=== PATIENT | female | born 1965 | race Caucasian/White ===

== ENCOUNTER → 2016-05-30 | Outpatient (CLI) | payer BC ==
[~2016-05-30] MED LIST: CEPH500C2 PO; CHOL1000 PO; LEVO100T7 PO; LEVO75TA5 PO; MULTTAB58 PO; NAPR-1169 PO
[2016-05-30 15:11] LABS: THYROID STIMULATING HORMONE 0.097 uIu/ml (0.300-4.500)
== END | disposition home or self-care (01) ==
LOC: C.LAB 13:40
PROVIDERS: ATTEND Internal Medicine Endocrinology, Diabetes & Metabolism
DX: E03.9 Hypothyroidism, unspecified (principal)

== ENCOUNTER 2016-06-27 20:58 | Emergency (ER) | payer BC ==
[~2016-06-27] VITALS: Ht 157.5 cm; Wt 62.6 kg
[~2016-06-27 20:58] MED LIST changes: -CEPH500C2 PO; -CHOL1000 PO; -LEVO75TA5 PO; -NAPR-1169 PO
[2016-06-27 21:05] VITALS: TEMP 36.9; Ht 157.5 cm; Wt 62.6 kg
[2016-06-27 22:18] VITALS: O2SAT 99
[2016-06-27 22:22] LABS: HEMATOCRIT 40.5 % (37-47); MEAN CELL VOLUME 70.9 fL (80-100); MEAN CORPUSCULAR HEMOGLOBIN 23.5 pg (25-34); MEAN CORPUSCULAR HGB CONC 33.1 g/dl (32-36); PLATELET COUNT 286 K/uL (130-400); RED BLOOD COUNT 5.71 M/uL (4.2-5.4); WHITE BLOOD COUNT 5.98 K/uL (4.8-10.8)
[2016-06-27 22:33] LABS: PARTIAL THROMBOPLASTIN RATIO 1.1; PROTHROMBIN TIME (PATIENT) 10.2 SECONDS (9.0-12.0)
--- NOTE | 2016-06-27 22:38 | DIAGNOSTIC IMAGING REPORT ---
CHEST ONE VIEW PORTABLE CLINICAL HISTORY: Atypical chest pain COMPARISON STUDY: No previous studies for comparison. FINDINGS: The cardiac and mediastinal contours are normal. There is no evidence of focal pulmonary consolidation. There is no evidence of failure. No pleural effusions are visualized.[ IMPRESSION: No active disease in the chest. Electronically signed by: Charly Flores M.D. 06/27/2016 10:36 PM Dictated Date/Time: 06/27/2016 10:36 PM
[2016-06-27 22:44] LABS: BUN/CREATININE RATIO 16.8 (10-20); CALCIUM 9.5 mg/dl (8.5-10.1); CREATININE 0.71 mg/dl (0.60-1.20); MAGNESIUM 2.3 mg/dl (1.8-2.4); POTASSIUM 3.6 mmol/L (3.5-5.1)
[2016-06-27 22:46] LABS: MANUAL MICROSCOPIC REQUIRED? NO; REVIEW REQ? NO; URINE APPEARANCE CLEAR (CLEAR); URINE BILIRUBIN NEG (NEG); URINE COLOR YELLOW; URINE NITRITE NEG (NEG); URINE PH 5.5 (4.5-7.5); UROBILINOGEN NEG (NEG); ZZUR CULT IF INDIC CLEAN CATCH NO
[2016-06-27 22:52] LABS: ALB/GLOB RATIO 0.9 (0.9-2); CKMB/CK RATIO 0.7 (0-3.0); THYROID STIMULATING HORMONE 1.62 uIu/ml (0.300-4.500)
[2016-06-27 23:00] LABS: BASO % 0.8 %; BASO ABS # 0.05 K/uL (0-0.2); COMPLETE YES; EOS % 4.8 %; IG% 0.2 %; LYMPH % 51.2 %; LYMPH ABS # 3.06 K/uL (1.2-3.4); MONO % 10.2 %; NEUT % 32.8 %
[2016-06-27] MEDS ORDERED: KETOROLAC TROMETHAMINE 30 MG/ML VIAL IV STA (23:26)
[2016-06-28] MEDS ORDERED: LEVO75TA5 PO (00:08)
[2016-06-28] MEDS ORDERED: CEPH500C2 PO (00:08)
[2016-06-28] MEDS ORDERED: CHOL1000 PO (00:10)
[2016-06-28 00:51] VITALS: BP 134/81; PULSE 64; O2SAT 99
[2016-06-28] MEDS ORDERED: NAPR-1169 PO (00:52)
--- NOTE | 2016-06-28 00:53 | EMERGENCY ROOM VISIT NOTE ---
History First contact with patient: 21:55 Chief Complaint: CHEST PAIN Stated Complaint: CHEST PAIN, DIFFICULTY BREATHING, FAST HEART BEAT Nursing Triage Summary: pt c/o cp, sob and rapid heart rate. started 2 days ago but today it is worse, History of Present Illness The patient is a 51 year old female who presents to the Emergency Department by private vehicle for evaluation of her pain with deep inspiration as well as shortness of breath and cough. She's had palpitations as well. She reports pain in the RIGHT-sided chest as well as LEFT-sided chest. She reports her symptoms started 2 days ago. They have been persistent since. She reports no history of similar symptoms. She denies any history of cardiac disease. There is no family history of blood clots or bleeding disorders. There is been no recent long-distance travel. She does not smoke. She rates her current discomfort as a 6/10. She is tried nothing [id number] for her symptoms. She denies any fevers, chills, recent illness, headaches, dizziness, lightheadedness, hemoptysis, nausea, vomiting, or abdominal pain. She recently has been treated for cellulitis to the LEFT knee which has resolved nicely. She is uncertain if medication is contributing to her symptoms. Review of Systems A complete 10-point Review of Systems was discussed with the patient, with pertinent positives and negatives listed in the History of Present Illness. All remaining Review of Systems questions can be considered negative unless otherwise specified. Past Medical/Surgical History Medical Problems: (1) Cyst, breast (2) Thyroid disease Surgical Problems: (1) H/O: hysterectomy Family History Cancer Diabetes mellitus FHx: lung disease Heart disease Hypertension Kidney disease Social History Smoking Status: Never Smoker Smokeless Tobacco Use: No Alcohol Use: none Drug Use: none Marital Status: Housing Status: lives with significant other Occupation Status: employed Current/Historical Medications Scheduled Cephalexin Monohydrate (Keflex), 500 MG PO QID Cholecalciferol (Vitamin D3), 1,000 UNITS PO DAILY Levothyroxine Sodium (Levothyroxine Sodium), 75 MCG PO DAILY Multiple Vitamin (Multivitamin), 1 TAB PO DAILY Naproxen (Naprosyn), 500 MG PO BID Allergies Coded Allergies: Penicillins (Unverified Adverse Reaction, Unknown, RASH, 02/05/15) Physical Exam Vital Signs Date Time Temp Pulse Resp B/P Pulse Ox O2 Delivery O2 Flow Rate FiO2 06/28/16 01:05 06/28/16 00:51 64 16 134/81 99 Room Air 06/27/16 23:00 76 16 126/77 98 Nasal Cannula 06/27/16 22:18 99 Room Air 06/27/16 22:01 97 06/27/16 21:05 36.9 108 18 141/69 98 Room Air Pain Rating (0-10): 6 Physical Exam VITAL SIGNS - Vital signs and nursing notes were reviewed. GENERAL - 51-year-old female appearing her stated age who is in no acute distress. Communicates well with provider and answers questions appropriately. LUNGS - Chest wall symmetric without accessory muscle use, intercostals retractions, or central cyanosis. Normal vesicular breath sounds CTA B/L. No wheezes, rales, or rhonchi appreciated. CARDIAC - RRR with S1/S2. No murmur, rubs, or gallops appreciated. Moderate reproducible tenderness to palpation appreciated over the anterior chest wall. ABDOMEN - Abdominal contour flat and without pulsations or visible masses. BS normoactive all four quadrants. No tenderness, palpable masses, hepatosplenomegaly, or ascites noted. EXTREMITIES - No clubbing or peripheral cyanosis. No pretibial edema present. +3 /5 radial and dorsalis pedis pulses palpated throughout. +5/5 strength noted in UE/LE bilaterally. NEUROLOGIC - Cranial nerves II through XII grossly intact. Sensory intact to light touch throughout. PSYCH - A&Ox3 and cooperates fully with examiner. Pt is very pleasant and interacts well with examiner. Medical Decision & Procedures ER Provider Diagnostic Interpretation: Radiological imaging and reports were reviewed by myself. Radiologist's Interpretation as follows: CHEST ONE VIEW PORTABLE CLINICAL HISTORY: Atypical chest pain COMPARISON STUDY: No previous studies for comparison. FINDINGS: The cardiac and mediastinal contours are normal. There is no evidence of focal pulmonary consolidation. There is no evidence of failure. No pleural effusions are visualized.[ IMPRESSION: No active disease in the chest. Laboratory Results 06/27/16 22:10 Red Blood Count 5.71, Mean Corpuscular Volume 70.9, Mean Corpuscular Hemoglobin 23.5, Mean Corpuscular Hemoglobin Concent 33.1, Mean Platelet Volume 10.0, Neutrophils (%) (Auto) 32.8, Lymphocytes (%) (Auto) 51.2, Monocytes (%) (Auto) 10.2, Eosinophils (%) (Auto) 4.8, Basophils (%) (Auto) 0.8, Neutrophils # (Auto ) 1.96, Lymphocytes # (Auto) 3.06, Monocytes # (Auto) 0.61, Eosinophils # (Auto ) 0.29, Basophils # (Auto) 0.05 06/27/16 22:10 Test 06/27/16 22:10 06/27/16 22:18 06/27/16 22:20 06/27/16 23:49 White Blood Count 5.98 K/uL (4.8-10.8) Red Blood Count 5.71 M/uL (4.2-5.4) Hemoglobin 13.4 g/dL (12.0-16.0) Hematocrit 40.5 % (37-47) Mean Corpuscular Volume 70.9 fL (80-100) Mean Corpuscular Hemoglobin 23.5 pg (25-34) Mean Corpuscular Hemoglobin Concent 33.1 g/dl (32-36) Platelet Count 286 K/uL (130-400) Mean Platelet Volume 10.0 fL (7.4-10.4) Neutrophils (%) (Auto) 32.8 % Lymphocytes (%) (Auto) 51.2 % Monocytes (%) (Auto) 10.2 % Eosinophils (%) (Auto) 4.8 % Basophils (%) (Auto) 0.8 % Neutrophils # (Auto) 1.96 K/uL (1.4-6.5) Lymphocytes # (Auto) 3.06 K/uL (1.2-3.4) Monocytes # (Auto) 0.61 K/uL (0.11-0.59) Eosinophils # (Auto) 0.29 K/uL (0-0.5) Basophils # (Auto) 0.05 K/uL (0-0.2) RDW Standard Deviation 39.5 fL (36.4-46.3) RDW Coefficient of Variation 15.2 % (11.5-14.5) Immature Granulocyte % (Auto) 0.2 % Immature Granulocyte # (Auto) 0.01 K/uL (0.00-0.02) Prothrombin Time 10.2 SECONDS (9.0-12.0) Prothromb Time International Ratio 1.0 (0.9-1.1) Activated Partial Thromboplast Time 29.3 SECONDS (21.0-31.0) Partial Thromboplastin Ratio 1.1 Anion Gap 8.0 mmol/L (3-11) Est Creatinine Clear Calc Drug Dose 82.5 ml/min Estimated GFR () 115.1 Estimated GFR (Non- 99.3 BUN/Creatinine Ratio 16.8 (10-20) Calcium Level 9.5 mg/dl (8.5-10.1) Magnesium Level 2.3 mg/dl (1.8-2.4) Total Bilirubin 0.2 mg/dl (0.2-1) Aspartate Amino Transf (AST/SGOT) 14 U/L (15-37) Alanine Aminotransferase (ALT/SGPT) 21 U/L (12-78) Alkaline Phosphatase 74 U/L (45-117) Total Creatine Kinase 72 U/L (26-192) Creatine Kinase MB 0.5 ng/ml (0.5-3.6) Creatine Kinase MB Ratio 0.7 (0-3.0) Total Protein 8.3 gm/dl (6.4-8.2) Albumin 4.0 gm/dl (3.4-5.0) Globulin 4.3 gm/dl (2.5-4.0) Albumin/Globulin Ratio 0.9 (0.9-2) Lipase 198 U/L (73-393) Thyroid Stimulating Hormone (TSH) 1.620 uIu/ml (0.300-4.500) Free Thyroxine 1.21 ng/dl (0.80-1.60) Free Triiodothyronine 2.55 pg/ml (2.30-4.20) Bedside D-Dimer 206 ng/mlFEU (0-450) Urine Color YELLOW Urine Appearance CLEAR (CLEAR) Urine pH 5.5 (4.5-7.5) Urine Specific Harned 1.010 (1.000-1.030) Urine Protein NEG (NEG) Urine Glucose (UA) NEG (NEG) Urine Ketones NEG (NEG) Urine Occult Blood NEG (NEG) Urine Nitrite NEG (NEG) Urine Bilirubin NEG (NEG) Urine Urobilinogen NEG (NEG) Urine Leukocyte Esterase NEG (NEG) Urine Test NEG (NEG) Bedside Troponin I 0.000 ng/ml (0-0.045) Medications Administered Medications (Trade) Dose Ordered Sig/Rajat Route Start Time Stop Time Status Last Admin Dose Admin Ketorolac Tromethamine (Toradol Inj) 30 mg NOW STAT IV 06/27/16 23:26 06/27/16 23:27 DC 06/27/16 23:55 30 MG Procedure Patient was placed on the playground monitor and monitored throughout the entire extent of their stay. In addition, the patient's pulse oximetry was monitored throughout the entire stay. Any abnormalities or aberrancies were addressed appropriately. ECG Indication: chest pain Rate (beats per minute): 84 Rhythm: normal sinus Findings: no acute ischemic change, no ectopy Comparison ECG Date: no prior available ED Course Patient was seen and evaluated by myself. Labs were drawn, saline lock in place. Chest x-ray and EKG were obtained. Laboratory results demonstrate no acute leukocytosis, worrisome anemia, or bandemia. The patient has no significant electrolyte abnormalities. Cardiac enzymes are negative. Troponin was negative. D-dimer was not elevated. Patient's labs indicate euthyroid state. Case is discussed with my attending physician who agrees with diagnostic approach and treatment plan. Repeat troponin was obtained and found to be negative. She was treated with 30 mg Toradol intravenously. On reevaluation, the patient reports feeling much better. The patient was educated on following up with her primary care provider from today's visit. She was educated on worrisome symptoms for return visit to the emergency department. Patient discharged home afebrile and in good condition. Medical Decision Given the patient's presentation and stated complaints, I did elect to perform the above-mentioned workup. The patient presents today with symptoms of difficulty with breathing as well as pleuritic chest pain. Her pain is reproducible. She's had the symptoms for 2 days. She has had negative cardiac enzymes 2. She is afebrile. She responded well to IV Toradol. Her pain is likely musculoskeletal in nature. She'll follow closely with her primary care provider from today's visit. She'll also return in the setting of any changing or worsening symptoms. Patient discharged home afebrile and in good condition. In the evaluation and treatment of this patient, the following differential diagnoses were considered: SC, ASC, Dysrhythmia, Angina, Mediastinitis, GERD, Esophagitis, PE, Pneumonia, Bronchitis, Costochondritis, Rib Fracture, Zoster. Impression Primary Impression: Pleuritic chest pain Additional Impression: Palpitations Departure Information Dispostion Home / Self-Care Condition GOOD Prescriptions Naproxen (Naprosyn) 500 Mg Tab 500 MG PO BID for 10 Days, #20 TAB Prov: Juan Guthrie PA-C 06/28/16 Referrals Mati Gross III, CRNP (PCP) Patient Instructions ED Chest Pain Pleurisy, [facility] Additional Instructions You have been treated in the Emergency Department for your Pleuritic Chest Pain. Laboratory results and Imaging Studies have ruled out any cardiac or pulmonary cause of your chest pain. You have been prescribed Naprosyn (naproxen). This is an anti-inflammatory medication used to help decrease your symptoms and improve your pain. Please take this medication as prescribed. It is best to take this medication with food. Please to not take this antibiotic with other NSAIDS including: Ibuprofen , Advil, Motrin, Aspirin, Aleve, Celebrex, etc. For pain control, you can use the following [id number] medicines (if >12 yo): - Regular strength (325mg/tab) Tylenol (acetaminophen) 2 tabs every 4-6 hours as needed. Do not exceed 12 tablets in a 24 hour period. Avoid taking more than 4 grams (4000 mg) of Tylenol per day. This includes any other sources of acetaminophen you may take on a regular basis. You should schedule a follow-up appointment with your Primary Care Provider in 2 -3 days for further evaluation from today's Emergency Department visit. Return to the Emergency Department if your current symptoms worsen despite treatment course outlined above, or if you develop any of the following symptoms : worsening chest pain, associated jaw/arm pain, nausea, dizziness, shortness of breath, bloody cough, or fainting. Problem Qualifiers
== END 2016-06-28 01:07 | disposition home or self-care (01) ==
LOC: C.EDB 21:00 → C.EDA 06-28 01:07
DX: R07.1 Chest pain on breathing (principal); R00.2 Palpitations; N60.09 Solitary cyst of unspecified breast; Z90.710 Acquired absence of both cervix and uterus; Z83.3 Family history of diabetes mellitus; Z82.49 Family history of ischemic heart disease and other diseases of the circulatory system

== ENCOUNTER → 2017-11-19 | Outpatient (CLI) | payer OTHER ==
[~2017-11-19] MED LIST changes: +CEPH500C2 PO; +CHOL1000 PO; -LEVO100T7 PO; +LEVO75TA5 PO
[2017-11-19 12:07] LABS: HEMATOCRIT 39.9 % (37-47); HEMOGLOBIN 12.5 g/dL (12.0-16.0); MEAN CELL VOLUME 70.9 fL (80-100); MEAN CORPUSCULAR HEMOGLOBIN 22.2 pg (25-34); MEAN CORPUSCULAR HGB CONC 31.3 g/dl (32-36); MEAN PLATELET VOLUME 9.9 fL (7.4-10.4); PLATELET COUNT 312 K/uL (130-400); RED CELL DISTRIBUTION WIDTH CV 15.8 % (11.5-14.5); RED CELL DISTRIBUTION WIDTH SD 40.8 fL (36.4-46.3); WHITE BLOOD COUNT 3.66 K/uL (4.8-10.8)
[2017-11-19 12:51] LABS: BASO % 1.1 %; BASO ABS # 0.04 K/uL (0-0.2); EOS % 4.9 %; EOS ABS # 0.18 K/uL (0-0.5); IG# 0.01 K/uL (0.00-0.02); LYMPH % 58.5 %; LYMPH ABS # 2.14 K/uL (1.2-3.4); MONO % 6.8 %; MONO ABS # 0.25 K/uL (0.11-0.59); NEUT % 28.4 %; NEUT ABS # 1.04 K/uL (1.4-6.5)
[2017-11-19 13:27] LABS: BLOOD UREA NITROGEN 9 mg/dl (7-18); CALCIUM 8.7 mg/dl (8.5-10.1); CARBON DIOXIDE 25 mmol/L (21-32); CHOLESTEROL 171 mg/dl (0-200); CREATININE 0.66 mg/dl (0.60-1.20); GLUCOSE 88 mg/dl (70-99); LDL CHOLESTEROL CALCULATED 95 mg/dl; POTASSIUM 3.9 mmol/L (3.5-5.1); SODIUM 136 mmol/L (136-145)
== END | disposition home or self-care (01) ==
LOC: C.LAB 10:46
PROVIDERS: ATTEND Internal Medicine
DX: Z13.220 Encounter for screening for lipoid disorders (principal); R53.83 Other fatigue; E55.9 Vitamin D deficiency, unspecified; N92.6 Irregular menstruation, unspecified; E03.9 Hypothyroidism, unspecified